=== PATIENT | male | born 1945 | race Hispanic/Latino ===

== ENCOUNTER 2019-09-13 17:30 | Emergency (ER) | payer MEDICARE, BC ==
[2019-09-13 18:40] LABS: #Eosinphils 0.1 thou/uL (0.0-0.7); #Lymphocytes 1.2 thou/uL (1.20-3.40); #Monocytes 0.6 thou/uL (0.11-0.59); #Neutrophils 6.8 thou/uL (1.40-6.50); %Basophils 0.1 % (0.0-1.0); %Eosinophils 0.9 % (0.0-10.0); %Lymphocytes 14.1 % (21.0-51.0); %Monocytes 7.3 % (0.0-10.0); %Neutrophils 77.6 % (42.0-75.0); Hemoglobin 9.3 g/dL (14.0-18.0); Mean Corpuscular HGB CONC 33.8 g/dL (32.0-36.0); Mean Corpuscular Hemoglobin 31.6 pg (27.0-31.0); Mean Corpuscular Volume 93.5 fL (78.0-98.0); Mean Platelet Volume 6.8 fL (7.4-10.4); Platelet Count 242 thou/uL (130-400); Red Blood Cell (RBC) Count 2.95 mill/uL (4.70-6.10); White Blood Cell (WBC) Count 8.7 thou/uL (4.8-10.8)
[2019-09-13 19:02] LABS: ALT (SGPT) 23 U/L (8-55); AST (SGOT) 29 U/L (5-34); Albumin 3.5 g/dL (3.4-4.8); Alkaline Phosphatase 67 U/L (40-110); Anion Gap 14 mmol/L (10-20); BUN (Urea Nitrogen) 22 mg/dL (8.4-25.7); Bilirubin, Total 0.2 mg/dL (0.2-1.2); Calc. Creatinine Clearance 0 mL/min (70-130); Calcium 8.8 mg/dL (7.8-10.44); Carbon Dioxide 25 mmol/L (23-31); Chloride 106 mmol/L (98-107); Estimated GFR-MDRD 15; Globulin 4.4 g/dL (2.4-3.5); Glucose 93 mg/dL (83-110); Potassium 4.9 mmol/L (3.5-5.1); Protein, Total 7.9 g/dL (5.8-8.1); Sodium 140 mmol/L (136-145)
[2019-09-13 21:38] LABS: Bilirubin Negative (Negative); Blood, Urine Trace (Negative); Clarity Clear (Clear); Glucose, Urine (Dipstick) Normal (Negative); Leukocyte 250 Leu/uL (Negative); Nitrite Negative (Negative); Protein, Urine (Dipstick) Negative (Neg-Trace); RBC/HPF 0-3 HPF (0-3); Squamous Epithelial 0-3 HPF (0-3); Urobilinogen Normal mg/dL (Less than 2)
[2019-09-13 21:45] LABS: Bacteria/HPF 1+ HPF (None Seen)
[2019-09-14] MEDS ORDERED: HYDROcodone/Acetaminophen 5/325 mg Tablet ONE (02:00)
--- NOTE | 2019-09-14 07:50 | ULT ---
PRELIMINARY REPORT/[facility]/EMERGENCY AFTER HOURS PROCEDURE PROCEDURE INFORMATION: Exam: US Duplex Right Lower Extremity Veins, Limited Exam date and time: 09/13/2019 11:58 PM Age: 74 years old Clinical history: Edema, localized; Lower extremity, right; Leg, lower; Patient HX: Rle pain/edema/redness x 3 wks TECHNIQUE: Imaging protocol: Real-time Duplex ultrasound of the Right Lower Extremity with 2-D gooden scale, color Doppler flow and spectral waveform analysis with image documentation. Limited exam was focused on the right lower extremity veins. COMPARISON: No relevant prior studies available. FINDINGS: Right deep veins: Unremarkable. The common femoral, femoral, proximal profunda femoral and popliteal veins are patent without thrombus. Normal Doppler waveforms. Normal compressibility and/or augmentation response. Right superficial veins: Unremarkable. Saphenofemoral junction is patent without thrombus. Soft tissues: Small amount of edema within the subcutaneous tissues of the right lower extremity. IMPRESSION: No acute findings. No evidence of deep vein thrombosis. Thank you for allowing us to participate in the care of your patient. Dictated and Authenticated by: Errol Motley MD 09/14/2019 12:35 AM Central Time ([place] & [place]) FINAL REPORT RIGHT LOWER EXTREMITY VENOUS DOPPLER ULTRASOUND: DATE: 09/14/2019 COMPARISON: None. HISTORY: Edema, swelling, assess for DVT. FINDINGS: Multiplanar grayscale sonographic imaging of the venous structures right lower extremity obtained wit h color flow and spectral analysis. Right common femoral vein, greater saphenous vein, profunda femoral vein, femoral vein, popliteal vei n, posterior tibial vein are patent. IMPRESSION: No evidence for deep venous thrombosis. This report is in agreement with the preliminary report by [facility]. Transcribed Date/Time: 09/14/2019 7:53 AM
== END 2019-09-14 02:14 | disposition home or self-care (01) ==
LOC: ERS 17:30
DX: N39.0 Urinary tract infection, site not specified (principal); F31.9 Bipolar disorder, unspecified; F41.9 Anxiety disorder, unspecified; Z79.899 Other long term (current) drug therapy
CPT/HCPCS: 36415; 51702; 80053; 81003; 81015; 85025

== ENCOUNTER 2019-11-13 15:51 | Outpatient (CLI) | payer MEDICARE, BC ==
[2019-11-13 16:54] LABS: Hemoglobin 12.5 g/dL (14.0-18.0); Mean Corpuscular HGB CONC 33.3 g/dL (32.0-36.0); Mean Corpuscular Volume 90.1 fL (78.0-98.0); Mean Platelet Volume 6.6 fL (7.4-10.4); Platelet Count 175 thou/uL (130-400); RBC Distribution Width 12.9 % (11.5-14.5); Red Blood Cell (RBC) Count 4.17 mill/uL (4.70-6.10)
[2019-11-13 17:02] LABS: PTT 25.9 SEC (22.9-36.1); Prothrombin Time 12.8 SEC (12.0-14.7)
[2019-11-13 17:22] LABS: Anion Gap 12 mmol/L (10-20); BUN (Urea Nitrogen) 14 mg/dL (8.4-25.7); Calc. Creatinine Clearance 0 mL/min (70-130); Calcium 9.1 mg/dL (7.8-10.44); Carbon Dioxide 31 mmol/L (23-31); Chloride 103 mmol/L (98-107); Estimated GFR-MDRD 47; Glucose 111 mg/dL (83-110); Potassium 4.3 mmol/L (3.5-5.1); Sodium 142 mmol/L (136-145)
== END 2019-11-13 15:52 | disposition home or self-care (01) ==
LOC: LABBT 15:51
PROVIDERS: ATTEND Urology
DX: Z01.818 Encounter for other preprocedural examination (principal); N40.1 Benign prostatic hyperplasia with lower urinary tract symptoms; G20 Parkinson's disease; R39.14 Feeling of incomplete bladder emptying; K59.01 Slow transit constipation; R97.20 Elevated prostate specific antigen [PSA]; Z87.440 Personal history of urinary (tract) infections
CPT/HCPCS: 80048; 85027; 85610; 85730; 87086; 88121; 93005; 93010

== ENCOUNTER 2019-11-30 08:22 | Outpatient (CLI) | payer MEDICARE, BC ==
--- NOTE | 2019-11-30 10:56 | MRI ---
MRI OF THE PROSTATE WITHOUT AND WITH CONTRAST: Date: 11/30/2019 HISTORY: Elevated PSA. BPH. TECHNIQUE: Multiplanar, multisequence MR images were obtained in the prostate without and with IV contrast. FINDINGS: There is mild hypertrophy of the central gland consistent with BPH. Gonzalez catheter is seen extending through the urethra into the urinary bladder with its balloon in the urinary bladder. No suspicious low T2 signal lesions are seen in the prostate. No restricted diffusion or low signal o n the ADC map is seen in the peripheral zone of the prostate. The seminal vesicles are intact. The neurovascular bundles are intact. No pelvic adenopathy is seen. No marrow signal abnormality is present. IMPRESSION: PI-RADS category 1 - Very low likelihood that a clinically significant cancer is present. POS: CET
== END 2019-11-30 08:23 | disposition home or self-care (01) ==
LOC: TBSIIMAG 08:22
PROVIDERS: ATTEND Urology
DX: N40.1 Benign prostatic hyperplasia with lower urinary tract symptoms (principal); R97.20 Elevated prostate specific antigen [PSA]
CPT/HCPCS: 72197

== ENCOUNTER 2019-12-13 08:52 | Day surgery (SDC) | payer MEDICARE, BC ==
[2019-11-13 16:52] VITALS: BMI 27.4
[2019-12-13] MEDS ORDERED: cefTRIAXone\\ROCEPHIN 1 GM VIAL ONE (11:15)
[2019-12-13] MEDS ORDERED: Sodium Chloride 0.9% 100 ML ONE (11:15)
[2019-12-13] MEDS ORDERED: Fentanyl 100 MCG/2 ML VIAL ONE ×2 (11:31→11:39)
[2019-12-13] MEDS ORDERED: Midazolam HCl 2 mg/2 ml Vial ONE (11:31)
[2019-12-13] MEDS ORDERED: Lidocaine 1% PF 5 ML VIAL ONE (12:00)
[2019-12-13] MEDS ORDERED: PROPOFOL 200 MG/20 ML VIAL ONE (12:00)
[2019-12-13] MEDS ORDERED: Oxybutynin 5 MG TAB ONE (13:58)
[2019-12-13] MEDS ORDERED: Phenazopyridine HCl 97.5 MG TABLET ONE (14:00)
[2019-12-13] MEDS ORDERED: HYDROcodone/Acetaminophen 5/325 mg Tablet ONE (15:25)
--- NOTE | 2019-12-13 15:59 | OP ---
DATE OF PROCEDURE: 12/13/2019 POSTOPERATIVE DIAGNOSES: A 74-year-old male with: 1. History of urinary retention. 2. Benign prostatic hypertrophy. POSTOPERATIVE DIAGNOSES: A 74-year-old male with: 1. History of urinary retention. 2. Benign prostatic hypertrophy. PROCEDURES PERFORMED: 1. Cystoscopy. 2. Suprapubic tube placement, 20-Stateless [place] tip with 15 mL in the balloon, catheter plugged. 3. UroLift implant x9. ANESTHESIA: TIVA. COMPLICATIONS: None apparent. DISPOSITION: To recovery room in stable condition. INDICATIONS FOR PROCEDURE AND HISTORY: Mr. Donohue is a 74-year-old male who presented with a urinary retention of 1 L. He has had an indwelling urethral Gonzalez catheter. Preoperative urine culture is negative and he presents today for UroLift. He underwent urodynamics and chest volume study in my office and the patient and family had been fully informed that despite surgical intervention for BPH, he may have persistent urinary retention as he has mild BPH component on cystoscopy. His family desired a trial of BPH surgery in hopes that he could empty bladder with full understanding that persistent retention may occur. Therefore, concomitant suprapubic tube was advised. Risks and complications of the procedure were reviewed including, but not limited to, bleeding, pain, infection, injury to adjacent organs, urosepsis, persistent urinary retention, possible secondary procedure were reviewed with him in detail as well as his daughter. All questions were answered to their satisfaction. They desired to proceed. Options of ongoing observation with indwelling urethral Gonzalez catheter and so the SP tube was also mentioned and they desired a trial of UroLift. DESCRIPTION OF PROCEDURE: After an informed consent was signed, the patient was taken to the operating room and placed in a dorsal lithotomy position with the genital area prepped and draped in the usual surgical sterile fashion. His abdomen area was also prepped as well. We performed a cystoscopy, staging the urethra, which demonstrated bilobar hyperplasia, mildly obstructing with coapting lateral lobes. Bladder was entered, which demonstrated diffuse trabeculation consistent with chronic outlet obstruction. The UOs were identified 3 to 4 mm away from the bladder neck. We distended the bladder and it was palpable just inferior to the umbilicus. Using an intraabdominal ultrasound, we imaged the bladder, which demonstrated no bowel contents in front of the bladder. Using a spinal needle, 18-Stateless, we entered the bladder. Subsequent area on the skin was incised with an 11 blade. I subsequently passed an entry needle into the bladder. A Superstiff wire was then fed through the needle entry into the bladder, which was directly visualized. Using a NephroMax balloon dilator, we dilated the suprapubic tube tract with 30-Stateless at 20 atmospheres. Subsequently, I was able to pass a 22-Stateless [place] tip without significant issues and 15 mL insufflated. This was capped, with a catheter plug, the SP tube was then sutured to skin using 3-0 nylon. We then reperformed a cystoscopy, staging his prostatic urethra and transition to a UroLift using a visual obturator. We implanted the left lateral side first. Care was taken to stay approximately 1.5 cm proximal to the bladder neck. We implanted a total of 4 implants on the left, 5 on the right, with a total of 9 implants. He did require multiple implants especially at the proximal prostatic urethra as his prostatic urethra is somewhat fluffy and pillowy. He did initially have a cat-eye effect. In an attempt to minimize this, implants were placed on stacking maneuver near the proximal urethra. He did have a better opening of the bladder neck. Care was taken to stay away from the bladder neck. No implants were seen encroaching the bladder neck mucosa. Intraoperative photos were taken. The lateral lobes of the prostate were resolved with no evidence of obstruction. He does have an anterior channel created from the implants. He tolerated the procedure well. An 18-Stateless 3-way Gonzalez catheter was placed to leg bag. He will be discharged with his urethral Gonzalez catheter to leg bag and will see me tomorrow for a voiding trial and we will monitor his suprapubic tube. He is discharged with antibiotic therapy for a course of 5 days. He is to resume his BPH medications. Job ID: [id number] [facility]
== END 2019-12-13 15:56 | disposition home or self-care (01) ==
LOC: SDC 08:52
PROVIDERS: ATTEND Urology
PROC: 0T7D8DZ Dilation of Urethra with Intraluminal Device, Via Natural or Artificial Opening Endoscopic (ICD-10-PCS; principal; 2019-12-13)
PROC: 0T9B30Z Drainage of Bladder with Drainage Device, Percutaneous Approach (ICD-10-PCS; 2019-12-13)
DX: N40.1 Benign prostatic hyperplasia with lower urinary tract symptoms (principal); R33.8 Other retention of urine; R39.14 Feeling of incomplete bladder emptying; N32.89 Other specified disorders of bladder; N30.90 Cystitis, unspecified without hematuria; D41.4 Neoplasm of uncertain behavior of bladder; N28.9 Disorder of kidney and ureter, unspecified; K59.01 Slow transit constipation; F41.9 Anxiety disorder, unspecified; E78.5 Hyperlipidemia, unspecified; F31.9 Bipolar disorder, unspecified; F20.9 Schizophrenia, unspecified; Z79.899 Other long term (current) drug therapy
CPT/HCPCS: 51102; C9740; C1889; C2627; J0696; J2001; J2250; J2704; J3010; J3370; J3490

== ENCOUNTER 2021-11-04 12:55 | Emergency (ER) | payer BC ==
[2021-11-04] MEDS ORDERED: EPINEPHrine 1 MG/10 ML Abboject SYRINGE ONE (12:58)
[2021-11-04] MEDS ORDERED: Sodium Bicarb 50 MEQ/50 ML Abboject 8.4% SYRINGE ONE (12:58)
== END 2021-11-04 13:01 | disposition expired ==
LOC: ERS 12:55
DX: I46.9 Cardiac arrest, cause unspecified (principal)
CPT/HCPCS: 92950; 96374; 96375; J0171